=== PATIENT | male | born 1965 | race African-American/Black ===

== ENCOUNTER 2024-04-27 12:35 | Outpatient (CLI) | payer MEDICARE, BC | END 2024-04-27 12:36 | disposition home or self-care (01) | LOC: CSHWCC 12:35 | PROVIDERS: ATTEND Nurse Practitioner Family | DX: E11.621 Type 2 diabetes mellitus with foot ulcer (principal); L97.526 Non-pressure chronic ulcer of other part of left foot with bone involvement without evidence of necrosis; T81.32XD Disruption of internal operation (surgical) wound, not elsewhere classified, subsequent encounter; M86.172 Other acute osteomyelitis, left ankle and foot; I50.22 Chronic systolic (congestive) heart failure; I73.9 Peripheral vascular disease, unspecified | CPT/HCPCS: 11044; G0463; 99204 ==

== ENCOUNTER 2024-05-03 12:32 | Outpatient (CLI) | payer MEDICARE, BC | END 2024-05-03 12:33 | disposition home or self-care (01) | LOC: CSHWCC 12:32 | PROVIDERS: ATTEND Nurse Practitioner Family | DX: E11.621 Type 2 diabetes mellitus with foot ulcer (principal); L97.526 Non-pressure chronic ulcer of other part of left foot with bone involvement without evidence of necrosis; T81.32XD Disruption of internal operation (surgical) wound, not elsewhere classified, subsequent encounter; M86.172 Other acute osteomyelitis, left ankle and foot; I50.22 Chronic systolic (congestive) heart failure; E11.51 Type 2 diabetes mellitus with diabetic peripheral angiopathy without gangrene | CPT/HCPCS: 11044; 87070; 87077; 87205 ==

== ENCOUNTER 2024-05-10 14:26 | Outpatient (CLI) | payer MEDICARE, BC | END 2024-05-10 14:27 | disposition home or self-care (01) | LOC: CSHWCC 14:26 | PROVIDERS: ATTEND Nurse Practitioner Family | DX: E11.621 Type 2 diabetes mellitus with foot ulcer (principal); L97.526 Non-pressure chronic ulcer of other part of left foot with bone involvement without evidence of necrosis; T81.32XD Disruption of internal operation (surgical) wound, not elsewhere classified, subsequent encounter; M86.172 Other acute osteomyelitis, left ankle and foot; I50.22 Chronic systolic (congestive) heart failure; E11.51 Type 2 diabetes mellitus with diabetic peripheral angiopathy without gangrene; I73.9 Peripheral vascular disease, unspecified | CPT/HCPCS: 11042 ==

== ENCOUNTER 2024-05-17 13:04 | Outpatient (CLI) | payer MEDICARE, BC | END 2024-05-17 13:05 | disposition home or self-care (01) | LOC: CSHWCC 13:04 | PROVIDERS: ATTEND Nurse Practitioner Family | DX: T81.329D Deep disruption or dehiscence of operation wound, unspecified, subsequent encounter (principal); E11.621 Type 2 diabetes mellitus with foot ulcer; L97.526 Non-pressure chronic ulcer of other part of left foot with bone involvement without evidence of necrosis; M86.172 Other acute osteomyelitis, left ankle and foot; I50.22 Chronic systolic (congestive) heart failure; I73.9 Peripheral vascular disease, unspecified | CPT/HCPCS: 11044 ==

== ENCOUNTER 2024-05-24 10:29 | Outpatient (CLI) | payer MEDICARE, BC | END 2024-05-24 10:30 | disposition home or self-care (01) | LOC: CSHWCC 10:29 | PROVIDERS: ATTEND Nurse Practitioner Family | DX: T81.329D Deep disruption or dehiscence of operation wound, unspecified, subsequent encounter (principal); E11.621 Type 2 diabetes mellitus with foot ulcer; L97.526 Non-pressure chronic ulcer of other part of left foot with bone involvement without evidence of necrosis; M86.172 Other acute osteomyelitis, left ankle and foot; I50.22 Chronic systolic (congestive) heart failure; E11.59 Type 2 diabetes mellitus with other circulatory complications | CPT/HCPCS: 11042 ==

== ENCOUNTER 2024-05-31 12:14 | Outpatient (CLI) | payer MEDICARE, BC | END 2024-05-31 12:15 | disposition home or self-care (01) | LOC: CSHRAD 12:14 | PROVIDERS: ATTEND Family Medicine | DX: E11.621 Type 2 diabetes mellitus with foot ulcer (principal); L97.526 Non-pressure chronic ulcer of other part of left foot with bone involvement without evidence of necrosis; M86.172 Other acute osteomyelitis, left ankle and foot; I50.22 Chronic systolic (congestive) heart failure; I73.9 Peripheral vascular disease, unspecified; T81.31XD Disruption of external operation (surgical) wound, not elsewhere classified, subsequent encounter | CPT/HCPCS: 71046; 97605 ==

== ENCOUNTER 2024-06-07 13:42 | Outpatient (CLI) | payer MEDICARE, BC | END 2024-06-07 13:43 | disposition home or self-care (01) | LOC: CSHWCC 13:42 | PROVIDERS: ATTEND Nurse Practitioner Family | DX: T81.329D Deep disruption or dehiscence of operation wound, unspecified, subsequent encounter (principal); E11.621 Type 2 diabetes mellitus with foot ulcer; L97.526 Non-pressure chronic ulcer of other part of left foot with bone involvement without evidence of necrosis; M86.172 Other acute osteomyelitis, left ankle and foot; I50.22 Chronic systolic (congestive) heart failure; I73.9 Peripheral vascular disease, unspecified | CPT/HCPCS: 11044 ==

== ENCOUNTER 2024-06-14 14:12 | Outpatient (CLI) | payer MEDICARE, BC | END 2024-06-14 14:13 | disposition home or self-care (01) | LOC: CSHWCC 14:12 | PROVIDERS: ATTEND Nurse Practitioner Family | DX: T81.329D Deep disruption or dehiscence of operation wound, unspecified, subsequent encounter (principal); E11.621 Type 2 diabetes mellitus with foot ulcer; L97.526 Non-pressure chronic ulcer of other part of left foot with bone involvement without evidence of necrosis; E11.51 Type 2 diabetes mellitus with diabetic peripheral angiopathy without gangrene; M86.172 Other acute osteomyelitis, left ankle and foot; I50.22 Chronic systolic (congestive) heart failure | CPT/HCPCS: 11042; 99212; G0463 ==

== ENCOUNTER 2024-06-21 13:56 | Outpatient (CLI) | payer MEDICARE, BC | END 2024-06-21 13:57 | disposition home or self-care (01) | LOC: CSHWCC 13:56 | PROVIDERS: ATTEND Nurse Practitioner Family | DX: E11.621 Type 2 diabetes mellitus with foot ulcer (principal); L97.526 Non-pressure chronic ulcer of other part of left foot with bone involvement without evidence of necrosis; T81.329D Deep disruption or dehiscence of operation wound, unspecified, subsequent encounter; M86.172 Other acute osteomyelitis, left ankle and foot; I50.22 Chronic systolic (congestive) heart failure; E11.51 Type 2 diabetes mellitus with diabetic peripheral angiopathy without gangrene; I73.9 Peripheral vascular disease, unspecified | CPT/HCPCS: 11042 ==

== ENCOUNTER 2024-07-07 09:04 | Outpatient (CLI) | payer MEDICARE, BC | END 2024-07-07 09:05 | disposition home or self-care (01) | LOC: CSHWCC 09:04 | PROVIDERS: ATTEND Nurse Practitioner Family | DX: T81.329D Deep disruption or dehiscence of operation wound, unspecified, subsequent encounter (principal); E11.621 Type 2 diabetes mellitus with foot ulcer; L97.526 Non-pressure chronic ulcer of other part of left foot with bone involvement without evidence of necrosis; E11.51 Type 2 diabetes mellitus with diabetic peripheral angiopathy without gangrene; M86.172 Other acute osteomyelitis, left ankle and foot; I50.22 Chronic systolic (congestive) heart failure | CPT/HCPCS: 11042; G0463; 99213 ==

== ENCOUNTER 2024-07-12 09:06 | Outpatient (CLI) | payer MEDICARE, BC | END 2024-07-12 09:07 | disposition home or self-care (01) | LOC: CSHWCC 09:06 | PROVIDERS: ATTEND Nurse Practitioner Family | DX: T81.31XD Disruption of external operation (surgical) wound, not elsewhere classified, subsequent encounter (principal); E11.621 Type 2 diabetes mellitus with foot ulcer; L97.526 Non-pressure chronic ulcer of other part of left foot with bone involvement without evidence of necrosis; M86.172 Other acute osteomyelitis, left ankle and foot; I50.22 Chronic systolic (congestive) heart failure; I73.9 Peripheral vascular disease, unspecified | CPT/HCPCS: 36416; G0277 ==

== ENCOUNTER 2024-07-15 08:12 | Outpatient (CLI) | payer MEDICARE, BC | END 2024-07-15 08:13 | disposition home or self-care (01) | LOC: CSHWCC 08:12 | PROVIDERS: ATTEND Family Medicine | DX: T81.31XD Disruption of external operation (surgical) wound, not elsewhere classified, subsequent encounter (principal); E11.621 Type 2 diabetes mellitus with foot ulcer; L97.526 Non-pressure chronic ulcer of other part of left foot with bone involvement without evidence of necrosis; M86.172 Other acute osteomyelitis, left ankle and foot; I50.22 Chronic systolic (congestive) heart failure; E11.59 Type 2 diabetes mellitus with other circulatory complications | CPT/HCPCS: 36416; 99212; G0277; G0463 ==

== ENCOUNTER 2024-07-22 14:00 | Outpatient (CLI) | payer MEDICARE, BC | END 2024-07-22 14:01 | disposition home or self-care (01) | LOC: CSHWCC 14:00 | PROVIDERS: ATTEND Nurse Practitioner Family | DX: T81.31XD Disruption of external operation (surgical) wound, not elsewhere classified, subsequent encounter (principal); E11.621 Type 2 diabetes mellitus with foot ulcer; L97.526 Non-pressure chronic ulcer of other part of left foot with bone involvement without evidence of necrosis; E11.51 Type 2 diabetes mellitus with diabetic peripheral angiopathy without gangrene; M86.172 Other acute osteomyelitis, left ankle and foot; I50.22 Chronic systolic (congestive) heart failure | CPT/HCPCS: 99212; G0463 ==

== ENCOUNTER 2024-07-26 09:52 | Outpatient (CLI) | payer MEDICARE, BC | END 2024-07-26 09:53 | disposition home or self-care (01) | LOC: CSHWCC 09:52 | PROVIDERS: ATTEND Nurse Practitioner Family | DX: T81.31XD Disruption of external operation (surgical) wound, not elsewhere classified, subsequent encounter (principal); E11.621 Type 2 diabetes mellitus with foot ulcer; L97.526 Non-pressure chronic ulcer of other part of left foot with bone involvement without evidence of necrosis; M86.172 Other acute osteomyelitis, left ankle and foot; I50.22 Chronic systolic (congestive) heart failure; E11.51 Type 2 diabetes mellitus with diabetic peripheral angiopathy without gangrene | CPT/HCPCS: 82962; G0277; 36416 ==

== ENCOUNTER 2024-07-27 08:16 | Outpatient (CLI) | payer MEDICARE, BC | END 2024-07-27 08:17 | disposition home or self-care (01) | LOC: CSHWCC 08:16 | PROVIDERS: ATTEND Nurse Practitioner Family | DX: T81.31XD Disruption of external operation (surgical) wound, not elsewhere classified, subsequent encounter (principal); E11.621 Type 2 diabetes mellitus with foot ulcer; L97.526 Non-pressure chronic ulcer of other part of left foot with bone involvement without evidence of necrosis; M86.172 Other acute osteomyelitis, left ankle and foot; I50.22 Chronic systolic (congestive) heart failure; E11.59 Type 2 diabetes mellitus with other circulatory complications | CPT/HCPCS: 36416; G0277 ==

== ENCOUNTER 2024-07-28 08:20 | Outpatient (CLI) | payer MEDICARE, BC | END 2024-07-28 08:21 | disposition home or self-care (01) | LOC: CSHWCC 08:20 | PROVIDERS: ATTEND Nurse Practitioner Family | DX: E11.621 Type 2 diabetes mellitus with foot ulcer (principal); L97.526 Non-pressure chronic ulcer of other part of left foot with bone involvement without evidence of necrosis; T81.31XD Disruption of external operation (surgical) wound, not elsewhere classified, subsequent encounter; M86.172 Other acute osteomyelitis, left ankle and foot; I50.22 Chronic systolic (congestive) heart failure; E11.51 Type 2 diabetes mellitus with diabetic peripheral angiopathy without gangrene; I73.9 Peripheral vascular disease, unspecified | CPT/HCPCS: 36416 ==

== ENCOUNTER 2024-08-05 08:18 | Outpatient (CLI) | payer MEDICARE, BC | END 2024-08-05 08:19 | disposition home or self-care (01) | LOC: CSHWCC 08:18 | PROVIDERS: ATTEND Nurse Practitioner Family | DX: E11.621 Type 2 diabetes mellitus with foot ulcer (principal); L97.526 Non-pressure chronic ulcer of other part of left foot with bone involvement without evidence of necrosis; M86.172 Other acute osteomyelitis, left ankle and foot; I50.22 Chronic systolic (congestive) heart failure; E11.51 Type 2 diabetes mellitus with diabetic peripheral angiopathy without gangrene; I73.9 Peripheral vascular disease, unspecified; T81.31XD Disruption of external operation (surgical) wound, not elsewhere classified, subsequent encounter | CPT/HCPCS: 11042; 82962; G0277; G0463; 36416; 99212 ==

== ENCOUNTER → 2024-08-06 | Outpatient (CLI) | payer MEDICARE, BC | LOC: CSHWCC 07-13 07:53 | PROVIDERS: ATTEND Nurse Practitioner Family | DX: T81.31XD Disruption of external operation (surgical) wound, not elsewhere classified, subsequent encounter (principal); E11.621 Type 2 diabetes mellitus with foot ulcer; L97.526 Non-pressure chronic ulcer of other part of left foot with bone involvement without evidence of necrosis; M86.172 Other acute osteomyelitis, left ankle and foot; I50.22 Chronic systolic (congestive) heart failure; E11.51 Type 2 diabetes mellitus with diabetic peripheral angiopathy without gangrene | CPT/HCPCS: 82962; G0277; 36416 ==

== ENCOUNTER 2024-08-09 09:49 | Outpatient (CLI) | payer MEDICARE, BC | END 2024-08-09 09:50 | disposition home or self-care (01) | LOC: CSHWCC 09:49 | PROVIDERS: ATTEND Nurse Practitioner Family | DX: T81.31XD Disruption of external operation (surgical) wound, not elsewhere classified, subsequent encounter (principal); E11.621 Type 2 diabetes mellitus with foot ulcer; L97.526 Non-pressure chronic ulcer of other part of left foot with bone involvement without evidence of necrosis; I50.22 Chronic systolic (congestive) heart failure; M86.172 Other acute osteomyelitis, left ankle and foot; E11.59 Type 2 diabetes mellitus with other circulatory complications | CPT/HCPCS: 36416; G0277 ==

== ENCOUNTER 2024-08-16 08:57 | Outpatient (CLI) | payer MEDICARE, BC | END 2024-08-16 08:58 | disposition home or self-care (01) | LOC: CSHWCC 08:57 | PROVIDERS: ATTEND Nurse Practitioner Family | DX: E11.621 Type 2 diabetes mellitus with foot ulcer (principal); L97.526 Non-pressure chronic ulcer of other part of left foot with bone involvement without evidence of necrosis; T81.31XD Disruption of external operation (surgical) wound, not elsewhere classified, subsequent encounter; M86.172 Other acute osteomyelitis, left ankle and foot; I50.22 Chronic systolic (congestive) heart failure; E11.51 Type 2 diabetes mellitus with diabetic peripheral angiopathy without gangrene; I73.9 Peripheral vascular disease, unspecified | CPT/HCPCS: 11042; 82962; G0277; 36416 ==

== ENCOUNTER 2024-08-17 13:15 | Outpatient (CLI) | payer MEDICARE, BC | END 2024-08-17 13:16 | disposition home or self-care (01) | LOC: CSHWCC 13:15 | PROVIDERS: ATTEND Nurse Practitioner Family | DX: T81.31XD Disruption of external operation (surgical) wound, not elsewhere classified, subsequent encounter (principal); E11.621 Type 2 diabetes mellitus with foot ulcer; L97.526 Non-pressure chronic ulcer of other part of left foot with bone involvement without evidence of necrosis; E11.51 Type 2 diabetes mellitus with diabetic peripheral angiopathy without gangrene; M86.172 Other acute osteomyelitis, left ankle and foot; I50.22 Chronic systolic (congestive) heart failure | CPT/HCPCS: 36416; G0277 ==

== ENCOUNTER 2024-08-18 10:18 | Outpatient (CLI) | payer MEDICARE, BC | END 2024-08-18 10:19 | disposition home or self-care (01) | LOC: CSHWCC 10:18 | PROVIDERS: ATTEND Nurse Practitioner Family | DX: T81.31XD Disruption of external operation (surgical) wound, not elsewhere classified, subsequent encounter (principal); E11.621 Type 2 diabetes mellitus with foot ulcer; L97.526 Non-pressure chronic ulcer of other part of left foot with bone involvement without evidence of necrosis; M86.172 Other acute osteomyelitis, left ankle and foot; I50.22 Chronic systolic (congestive) heart failure; I73.9 Peripheral vascular disease, unspecified | CPT/HCPCS: 36416 ==

== ENCOUNTER 2024-08-19 08:32 | Outpatient (CLI) | payer MEDICARE, BC | END 2024-08-19 08:33 | disposition home or self-care (01) | LOC: CSHWCC 08:32 | PROVIDERS: ATTEND Nurse Practitioner Family | DX: T81.31XD Disruption of external operation (surgical) wound, not elsewhere classified, subsequent encounter (principal); E11.621 Type 2 diabetes mellitus with foot ulcer; L97.526 Non-pressure chronic ulcer of other part of left foot with bone involvement without evidence of necrosis; M86.172 Other acute osteomyelitis, left ankle and foot; I50.22 Chronic systolic (congestive) heart failure; I73.9 Peripheral vascular disease, unspecified | CPT/HCPCS: 36416 ==

== ENCOUNTER 2024-08-20 08:44 | Outpatient (CLI) | payer MEDICARE, BC | END 2024-08-20 08:45 | disposition home or self-care (01) | LOC: CSHWCC 08:44 | PROVIDERS: ATTEND Nurse Practitioner Family | DX: E11.621 Type 2 diabetes mellitus with foot ulcer (principal); L97.526 Non-pressure chronic ulcer of other part of left foot with bone involvement without evidence of necrosis; T81.31XD Disruption of external operation (surgical) wound, not elsewhere classified, subsequent encounter; E11.51 Type 2 diabetes mellitus with diabetic peripheral angiopathy without gangrene; I50.22 Chronic systolic (congestive) heart failure; M86.172 Other acute osteomyelitis, left ankle and foot | CPT/HCPCS: 36416 ==

== ENCOUNTER 2024-08-23 08:24 | Outpatient (CLI) | payer MEDICARE, BC | END 2024-08-23 08:25 | disposition home or self-care (01) | LOC: CSHWCC 08:24 | PROVIDERS: ATTEND Nurse Practitioner Family | DX: T81.31XD Disruption of external operation (surgical) wound, not elsewhere classified, subsequent encounter (principal); E11.621 Type 2 diabetes mellitus with foot ulcer; L97.526 Non-pressure chronic ulcer of other part of left foot with bone involvement without evidence of necrosis; E11.51 Type 2 diabetes mellitus with diabetic peripheral angiopathy without gangrene; I50.22 Chronic systolic (congestive) heart failure; M86.172 Other acute osteomyelitis, left ankle and foot | CPT/HCPCS: 36416; G0277 ==

== ENCOUNTER 2024-08-24 08:56 | Outpatient (CLI) | payer MEDICARE, BC | END 2024-08-24 08:57 | disposition home or self-care (01) | LOC: CSHWCC 08:56 | PROVIDERS: ATTEND Nurse Practitioner Family | DX: T81.31XD Disruption of external operation (surgical) wound, not elsewhere classified, subsequent encounter (principal); E11.621 Type 2 diabetes mellitus with foot ulcer; L97.526 Non-pressure chronic ulcer of other part of left foot with bone involvement without evidence of necrosis; M86.172 Other acute osteomyelitis, left ankle and foot; I50.22 Chronic systolic (congestive) heart failure; I73.9 Peripheral vascular disease, unspecified | CPT/HCPCS: 82962; G0277; 36416 ==

== ENCOUNTER 2024-08-25 08:40 | Outpatient (CLI) | payer MEDICARE, BC | END 2024-08-25 08:41 | disposition home or self-care (01) | LOC: CSHWCC 08:40 | PROVIDERS: ATTEND Nurse Practitioner Family | DX: T81.31XD Disruption of external operation (surgical) wound, not elsewhere classified, subsequent encounter (principal); E11.621 Type 2 diabetes mellitus with foot ulcer; L97.526 Non-pressure chronic ulcer of other part of left foot with bone involvement without evidence of necrosis; M86.172 Other acute osteomyelitis, left ankle and foot; I50.22 Chronic systolic (congestive) heart failure; E11.59 Type 2 diabetes mellitus with other circulatory complications | CPT/HCPCS: 11042; 36416; 99212; G0277; G0463 ==

== ENCOUNTER 2024-08-26 09:20 | Outpatient (CLI) | payer MEDICARE, BC | END 2024-08-26 09:21 | disposition home or self-care (01) | LOC: CSHWCC 09:20 | PROVIDERS: ATTEND Nurse Practitioner Family | DX: T81.31XD Disruption of external operation (surgical) wound, not elsewhere classified, subsequent encounter (principal); E11.621 Type 2 diabetes mellitus with foot ulcer; L97.526 Non-pressure chronic ulcer of other part of left foot with bone involvement without evidence of necrosis; M86.172 Other acute osteomyelitis, left ankle and foot; I50.22 Chronic systolic (congestive) heart failure; E11.59 Type 2 diabetes mellitus with other circulatory complications | CPT/HCPCS: 82962; G0277; 36416 ==

== ENCOUNTER 2024-09-02 10:35 | Outpatient (CLI) | payer MEDICARE, BC | END 2024-09-02 10:36 | disposition home or self-care (01) | LOC: CSHWCC 10:35 | PROVIDERS: ATTEND Nurse Practitioner Family | DX: L97.526 Non-pressure chronic ulcer of other part of left foot with bone involvement without evidence of necrosis (principal); Z89.412 Acquired absence of left great toe; Z89.422 Acquired absence of other left toe(s) | CPT/HCPCS: 11042; G0463; 99214 ==

== ENCOUNTER 2024-09-02 11:51 | Outpatient (CLI) | payer MEDICARE, BC | END 2024-09-02 11:52 | disposition home or self-care (01) | LOC: CSHRAD 11:51 | PROVIDERS: ATTEND Nurse Practitioner Family | DX: L97.526 Non-pressure chronic ulcer of other part of left foot with bone involvement without evidence of necrosis (principal); Z89.412 Acquired absence of left great toe; Z89.422 Acquired absence of other left toe(s); M85.872 Other specified disorders of bone density and structure, left ankle and foot ==

== ENCOUNTER 2024-09-16 11:40 | Outpatient (CLI) | payer MEDICARE, BC | END 2024-09-16 11:41 | disposition home or self-care (01) | LOC: CSHWCC 11:40 | PROVIDERS: ATTEND Nurse Practitioner Family | DX: E11.621 Type 2 diabetes mellitus with foot ulcer (principal); L97.526 Non-pressure chronic ulcer of other part of left foot with bone involvement without evidence of necrosis; T81.31XD Disruption of external operation (surgical) wound, not elsewhere classified, subsequent encounter; M86.172 Other acute osteomyelitis, left ankle and foot; I50.22 Chronic systolic (congestive) heart failure; E11.51 Type 2 diabetes mellitus with diabetic peripheral angiopathy without gangrene; I73.9 Peripheral vascular disease, unspecified | CPT/HCPCS: 11042 ==

== ENCOUNTER 2024-12-02 10:39 | Outpatient (CLI) | payer MEDICARE, BC | END 2024-12-02 10:40 | disposition home or self-care (01) | LOC: CSHWCC 10:39 | PROVIDERS: ATTEND Nurse Practitioner Family | DX: E11.621 Type 2 diabetes mellitus with foot ulcer (principal); L97.526 Non-pressure chronic ulcer of other part of left foot with bone involvement without evidence of necrosis; T81.31XD Disruption of external operation (surgical) wound, not elsewhere classified, subsequent encounter; M86.172 Other acute osteomyelitis, left ankle and foot; I50.22 Chronic systolic (congestive) heart failure; E11.51 Type 2 diabetes mellitus with diabetic peripheral angiopathy without gangrene ==

== ENCOUNTER 2025-03-01 13:24 | Outpatient (CLI) | payer MEDICARE, BC | END 2025-03-01 13:25 | disposition home or self-care (01) | LOC: CSHWCC 13:24 | PROVIDERS: ATTEND Nurse Practitioner Family | DX: E11.621 Type 2 diabetes mellitus with foot ulcer (principal); L97.526 Non-pressure chronic ulcer of other part of left foot with bone involvement without evidence of necrosis; M86.172 Other acute osteomyelitis, left ankle and foot; I50.22 Chronic systolic (congestive) heart failure; I73.9 Peripheral vascular disease, unspecified | CPT/HCPCS: 11042; G0463; 99213 ==

== ENCOUNTER 2025-03-18 12:48 | Outpatient (CLI) | payer MEDICARE, BC | END 2025-03-18 12:49 | disposition home or self-care (01) | LOC: CSHWCC 12:48 | PROVIDERS: ATTEND Nurse Practitioner Family | DX: E11.621 Type 2 diabetes mellitus with foot ulcer (principal); L97.526 Non-pressure chronic ulcer of other part of left foot with bone involvement without evidence of necrosis; M86.172 Other acute osteomyelitis, left ankle and foot; I50.22 Chronic systolic (congestive) heart failure; E11.51 Type 2 diabetes mellitus with diabetic peripheral angiopathy without gangrene | CPT/HCPCS: 11044; G0463; 99212 ==

== ENCOUNTER 2025-03-25 13:39 | Outpatient (CLI) | payer MEDICARE, BC | END 2025-03-25 13:40 | disposition home or self-care (01) | LOC: CSHWCC 13:39 | PROVIDERS: ATTEND Nurse Practitioner Family | DX: E11.621 Type 2 diabetes mellitus with foot ulcer (principal); L97.526 Non-pressure chronic ulcer of other part of left foot with bone involvement without evidence of necrosis; I50.22 Chronic systolic (congestive) heart failure; M86.172 Other acute osteomyelitis, left ankle and foot; E11.59 Type 2 diabetes mellitus with other circulatory complications | CPT/HCPCS: 11042; G0463; 99213 ==

== ENCOUNTER 2025-04-14 10:54 | Outpatient (CLI) | payer MEDICARE, BC | END 2025-04-14 10:55 | disposition home or self-care (01) | LOC: CSHWCC 10:54 | PROVIDERS: ATTEND Nurse Practitioner Family | DX: E11.621 Type 2 diabetes mellitus with foot ulcer (principal); L97.526 Non-pressure chronic ulcer of other part of left foot with bone involvement without evidence of necrosis; M86.172 Other acute osteomyelitis, left ankle and foot; I50.22 Chronic systolic (congestive) heart failure; E11.59 Type 2 diabetes mellitus with other circulatory complications | CPT/HCPCS: 11042 ==

== ENCOUNTER 2025-04-21 11:26 | Outpatient (CLI) | payer MEDICARE, BC | END 2025-04-21 11:27 | disposition home or self-care (01) | LOC: CSHWCC 11:26 | PROVIDERS: ATTEND Nurse Practitioner Family | DX: E11.621 Type 2 diabetes mellitus with foot ulcer (principal); L97.526 Non-pressure chronic ulcer of other part of left foot with bone involvement without evidence of necrosis; E11.51 Type 2 diabetes mellitus with diabetic peripheral angiopathy without gangrene; E11.69 Type 2 diabetes mellitus with other specified complication; M86.172 Other acute osteomyelitis, left ankle and foot; I50.22 Chronic systolic (congestive) heart failure | CPT/HCPCS: 11042; G0463; 99213 ==

== ENCOUNTER 2025-05-05 12:54 | Outpatient (CLI) | payer MEDICARE, BC | END 2025-05-05 12:55 | disposition home or self-care (01) | LOC: CSHWCC 12:54 | PROVIDERS: ATTEND Nurse Practitioner Family | DX: E11.621 Type 2 diabetes mellitus with foot ulcer (principal); L97.526 Non-pressure chronic ulcer of other part of left foot with bone involvement without evidence of necrosis; M86.172 Other acute osteomyelitis, left ankle and foot; I50.22 Chronic systolic (congestive) heart failure; I73.9 Peripheral vascular disease, unspecified | CPT/HCPCS: 97597 ==

== ENCOUNTER 2025-05-12 10:54 | Outpatient (CLI) | payer MEDICARE, BC | END 2025-05-12 10:55 | disposition home or self-care (01) | LOC: CSHWCC 10:54 | PROVIDERS: ATTEND Nurse Practitioner Family | DX: E11.621 Type 2 diabetes mellitus with foot ulcer (principal); L97.526 Non-pressure chronic ulcer of other part of left foot with bone involvement without evidence of necrosis; E11.69 Type 2 diabetes mellitus with other specified complication; M86.172 Other acute osteomyelitis, left ankle and foot; I50.22 Chronic systolic (congestive) heart failure; E11.51 Type 2 diabetes mellitus with diabetic peripheral angiopathy without gangrene | CPT/HCPCS: 11042; 99213; G0463 ==

== ENCOUNTER 2025-05-25 10:53 | Outpatient (CLI) | payer MEDICARE, BC | END 2025-05-25 10:54 | disposition home or self-care (01) | LOC: CSHWCC 10:53 | PROVIDERS: ATTEND Nurse Practitioner Family | DX: E11.621 Type 2 diabetes mellitus with foot ulcer (principal); L97.526 Non-pressure chronic ulcer of other part of left foot with bone involvement without evidence of necrosis; I50.22 Chronic systolic (congestive) heart failure; M86.172 Other acute osteomyelitis, left ankle and foot; E11.51 Type 2 diabetes mellitus with diabetic peripheral angiopathy without gangrene | CPT/HCPCS: 11042; G0463; 99213 ==

== ENCOUNTER 2025-06-09 10:22 | Outpatient (CLI) | payer MEDICARE, BC | END 2025-06-09 10:23 | disposition home or self-care (01) | LOC: CSHWCC 10:22 | PROVIDERS: ATTEND Nurse Practitioner Family | DX: E11.621 Type 2 diabetes mellitus with foot ulcer (principal); L97.526 Non-pressure chronic ulcer of other part of left foot with bone involvement without evidence of necrosis; M86.172 Other acute osteomyelitis, left ankle and foot; I50.22 Chronic systolic (congestive) heart failure; I73.9 Peripheral vascular disease, unspecified | CPT/HCPCS: 97597 ==

== ENCOUNTER 2025-06-23 11:21 | Outpatient (CLI) | payer MEDICARE, BC | END 2025-06-23 11:22 | disposition home or self-care (01) | LOC: CSHWCC 11:21 | PROVIDERS: ATTEND Nurse Practitioner Family | DX: E11.621 Type 2 diabetes mellitus with foot ulcer (principal); L97.526 Non-pressure chronic ulcer of other part of left foot with bone involvement without evidence of necrosis; E11.51 Type 2 diabetes mellitus with diabetic peripheral angiopathy without gangrene; E11.69 Type 2 diabetes mellitus with other specified complication; M86.172 Other acute osteomyelitis, left ankle and foot; I50.22 Chronic systolic (congestive) heart failure | CPT/HCPCS: 97597 ==

== ENCOUNTER 2025-06-30 08:44 | Outpatient (CLI) | payer MEDICARE, BC | END 2025-06-30 08:45 | disposition home or self-care (01) | LOC: CSHWCC 08:44 | PROVIDERS: ATTEND Nurse Practitioner Family | DX: E11.621 Type 2 diabetes mellitus with foot ulcer (principal); L97.526 Non-pressure chronic ulcer of other part of left foot with bone involvement without evidence of necrosis; I50.22 Chronic systolic (congestive) heart failure; E11.51 Type 2 diabetes mellitus with diabetic peripheral angiopathy without gangrene; E11.69 Type 2 diabetes mellitus with other specified complication; M86.172 Other acute osteomyelitis, left ankle and foot | CPT/HCPCS: 99212; G0463 ==